=== PATIENT | female | born 1935 | race Caucasian/White ===

== ENCOUNTER → 2018-10-03 11:05 | Outpatient (CLI) | payer MEDICARE, BC, SELFPAY ==
[2018-10-03 11:39] LABS: Add Manual Diff / Slide Review NO; Basophils Percent Auto 0.7 % (0-2); Eosinophils Percent Auto 1.8 % (2-4); Hematocrit 45.2 % (36-46); Lymphocytes Percent Auto 21.3 % (25-40); Mean Corpuscular HGB Conc 33.2 % (30-36); Mean Corpuscular Hemoglobin 32.7 PG (26-34); Mean Corpuscular Volume 98.5 fL (80-100); Neutrophils Absolute Auto 4100 /uL (1500-7000); Neutrophils Percent Auto 69.2 % (50-75); Platelet Count 263 X10^3/uL (150-400); Red Blood Cell Count 4.59 X10^6/uL (4.0-5.2)
[2018-10-03 11:56] LABS: Alanine Aminotransferase 31 IU/L (9-52); Albumin 3.9 g/dL (3.5-5.0); Albumin Globulin Ratio 1.5 (1.0-2.8); Alkaline Phosphatase 62 U/L (38-126); Aspartate Aminotransferase 33 IU/L (14-36); BUN Creatinine Ratio 26.7 (6-22); Bilirubin Total 0.5 mg/dL (0.2-1.3); Blood Urea Nitrogen 16 mg/dL (7-17); Calcium 9.8 mg/dL (8.4-10.2); Carbon Dioxide 27 mmol/L (22-32); Chloride 105 mmol/L (98-107); Estimated Glomerular Filt Rate > 60.0 mL/min (>60); Globulin 2.6 g/dL (1.7-4.1); Glucose 89 mg/dL (80-110); HEMOLYSIS < 15 (0-50); Potassium 4.6 mmol/L (3.4-5.1); Sodium 140 mmol/L (137-145); Total Protein 6.5 g/dL (6.3-8.2)
[2018-10-03 11:58] LABS: C-Reactive Protein Quant < 0.5 mg/dL (<1.0)
[2018-10-03 13:05] LABS: Erythrocyte Sedimentation Rate 2 MM/HR (0-20)
== END ==
PROVIDERS: Visit Provider Ophthalmology
DX: H54.7 Unspecified visual loss (principal); M35.3 Polymyalgia rheumatica
CPT/HCPCS: 36415; 80053; 85025; 85651; 86140

== ENCOUNTER → 2021-12-07 12:59 | Outpatient (CLI) | payer MEDICARE, BC, SELFPAY ==
--- NOTE | 2021-12-07 13:01 | DI.RAD.S_ITS ---
PROCEDURE: FL BARIUM SWALLOW W SPEECH INDICATIONS: Dysphagia, unspecified COMPARISON: None. TECHNIQUE: Examination was conducted in conjunction with speech pathology per standard protocol. In the lateral projection, filming was performed of the patient swallowing. AP projection filming may also be performed with patient swallowing. COMPARISON: FINDINGS: Function: The oral preparatory phase appears normal, with proper containment. The subsequent oral propulsive phase, pharyngeal phase, and esophageal phase of swallowing also appear normal with all proffered substances. No laryngotracheal penetration or aspiration. No pathologic vallecular pooling. Morphology: No cricopharyngeal bar is identified. No cervical esophageal webs. No Zenker's diverticulum. There is stricture at the gastroesophageal junction which impedes passage of 13 millimeter by calibrated barium tablet. There is diffusely patulous esophagus associated with the distal stricture. IMPRESSION: 1. No tracheal laryngeal penetration or aspiration. 2. No pathologic vallecular or piriform sinus pooling. 3. Distal esophageal stricture which impedes passage of 13 millimeter calibrated barium tablet. Recommend endoscopy to differentiate benign from malignant stricture. Dictated by: Dahlia Keller MD, PhD on 12/07/2021 at 16:07 Approved by: Dahlia Keller MD, PhD on 12/07/2021 at 16:12
--- NOTE | 2021-12-07 15:15 | ST.SWALLOW ---
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 Kelley ENT. Over the past 2 years the pt has described an occasional sharp pain on the right side of her neck when swallowing pills. She denies difficulty swallowing liquids and solids, only pills. Pt has no medical history of injury or surgery in the neck area, no diagnoses such as Parkinson's or CVA (pt noted she has had several little strokes but has fully recovered). Subjective Observations Pt was seated in the fluoroscopy chair. Procedures and instructions were provided after which the pt indicated she understood and agreed to proceed. Patient Positioning Position View Lat-A/P Imaging Lateral View Textures Administered Trials Presented Thin Liquid via Spoon,Thin Liquid via Cup,Pudding Thick Liquid via Spoon,Regular Textures Oral Phase Source: MBSIMP (TM) (C) Bolus Specific Scoring Grid Lip Closure No Impairment (WNL) Tongue Control During Bolus Hold No Impairment (WNL) Bolus Prep/Mastication No Impairment (WNL) Bolus Transport/Lingual Motion No Impairment (WNL) A/P Lingual Propulsion Delay No Oral Residue No Impairment (WNL) Pharyngeal Phase Source: MBSIMP (TM) (C) Bolus Specific Scoring Grid Delayed Initiation of Pharyngeal Swallow No Soft Palate Elevation No Impairment (WNL) Tongue Base Strength/Range of Motion Minimal Impairment Residue Along the Tongue Base Yes Clearance of Residue Along Tongue Base WFL Laryngeal Elevation No Impairment (WNL) Anterior Hyoid Movement No Impairment (WNL) Epiglottic Range of Motion No Impairment (WNL) Vallecular Residue Yes: with trials of thick contrast. Cleared with water Clearance of Vallecular Residue WFL Laryngeal Vestibular Closure No Impairment (WNL) Pharyngeal Stripping Wave Minimal Impairment Posterior Pharyngeal Wall Residue No Upper Esophageal Sphincter Opening Mild Impairment Residue in the Pyriform Sinuses No Esophageal Clearance Upright Position Moderate Impairment Additional Pharyngeal Phase Observations The pt's pharyngeal phase of swallowing was determined to be WNL to minimally impaired. Prompt swallow response, good hyolaryngeal elevation and movement with epiglottic inversion. No penetration or aspiration observed. No unusual pooling or interruption in the bolus flows through the pharynx. The UES opening appeared restricted in duration and extension. Residue of the thicker contrast and cookie trials needed 3-4 swallows in order to clear residue into the esophagus. Large osteophytes were noted at C4 and C6; however the bolus flow through the esophagus, while altered, was not impeded. The patient denied feeling the pain during the MBS. A/P View Textures Administered Trials Presented Barium Tablet A/P View Observations Pharyngeal Contraction WFL Esophageal Function Slowed Clearing,Narrowing Esophageal Clearance Upright Position Moderate Impairment Additional Observations Mild-moderate impairment of LES with slow emptying and narrowing at the gastroesophageal junction restricting the passage of the barium tablet to the stomach, despite additional sips of water/thin barium. Esophageal Observations Esophageal Function UES opening appeared restricted in duration and extension, slow motility, narrowing at GE junction, restricted passage of the tablet Clinical Impressions Dysphagia Type No oropharyngeal dysphagia observed Patient Appropriate for Therapy No Recommendations Diet Medication Recommendation Whole in Carrier,Crushed in Carrier Aspiration Precautions Recommended Precautions Upright at 90 Degrees Treatment Plan Recommended Referrals GI Consult
== END ==
PROVIDERS: PCP Family Medicine; Referring Provider Otolaryngology; Visit Provider Otolaryngology
DX: K22.2 Esophageal obstruction (principal); R13.10 Dysphagia, unspecified
CPT/HCPCS: 74230; 92611

== ENCOUNTER → 2023-04-22 15:20 | Outpatient (CLI) | payer MEDICARE, BC, SELFPAY ==
[2023-04-22 17:30] LABS: Add Manual Diff / Slide Review NO; Basophils Absolute Auto 100 /uL (0-100); Basophils Percent Auto 0.8 % (0-2); Eosinophils Absolute Auto 500 /uL (0-450); Eosinophils Percent Auto 6.4 % (2-4); Hematocrit 43.2 % (36-46); Hemoglobin 14.8 g/dL (12.0-16.0); Lymphocytes Absolute Auto 1600 /uL (1100-4500); Lymphocytes Percent Auto 21.2 % (25-40); Mean Corpuscular HGB Conc 34.2 % (30-36); Mean Corpuscular Hemoglobin 32.2 PG (26-34); Mean Corpuscular Volume 94.2 fL (80-100); Monocytes Absolute Auto 400 /uL (0-900); Monocytes Percent Auto 5.3 % (3-14); Neutrophils Absolute Auto 4900 /uL (1500-7000); Neutrophils Percent Auto 66.3 % (50-75); Platelet Count 281 X10^3/uL (150-400); Red Blood Cell Count 4.59 X10^6/uL (4.0-5.2); Red Cell Distribution Width 13.6 % (11.6-14.8); White Blood Cell Count 7.4 X10^3/uL (4.5-11.0)
[2023-04-22 17:46] LABS: Alanine Aminotransferase 25 IU/L (<35); Albumin 4.3 g/dL (3.5-5.0); Albumin Globulin Ratio 1.5 (1.0-2.8); Alkaline Phosphatase 75 U/L (38-126); Aspartate Aminotransferase 41 IU/L (14-36); BUN Creatinine Ratio 34.7 (6-22); Bilirubin Total 0.6 mg/dL (0.2-1.3); Blood Urea Nitrogen 25 mg/dL (7-17); Calcium 9.7 mg/dL (8.4-10.2); Carbon Dioxide 32 mmol/L (22-32); Chloride 101 mmol/L (98-107); Estimated Glomerular Filt Rate > 60 mL/min (>60); Globulin 2.8 g/dL (1.7-4.1); Glucose 102 mg/dL (80-110); HEMOLYSIS < 15 (0-50); Potassium 4.9 mmol/L (3.4-5.1); Sodium 137 mmol/L (137-145); Total Protein 7.1 g/dL (6.3-8.2)
[2023-04-22 17:50] LABS: High Sensitivity CRP - Cardiac 1.3 mg/L (1.0-3.0)
[2023-04-22 18:11] LABS: Erythrocyte Sedimentation Rate 5 MM/HR (0-20)
[2023-04-22 18:20] LABS: Thyroid Stimulating Hormone 1.49 uIU/mL (0.47-4.68)
[2023-04-24 15:58] LABS: SS A Ro Sjogrens Antibody < 0.2 AI (0.0-0.9); SS B La Sjogrens Antibody < 0.2 AI (0.0-0.9)
[2023-04-24 16:36] LABS: ANA Screen, IFA Negative (.)
== END ==
PROVIDERS: PCP Physician Assistant; Referring Provider Ophthalmology; Visit Provider Ophthalmology
DX: H16.223 Keratoconjunctivitis sicca, not specified as Sjogren's, bilateral (principal)
CPT/HCPCS: 36415; 80053; 84443; 85025; 85651; 86038; 86140; 86235